=== PATIENT | female | born 1995 | race Two or more races ===

== ENCOUNTER 2024-09-27 00:04 | Observation (INO) | payer MEDICAID, OTHER ==
[~2024-09-27] VITALS: Ht 160 cm; Wt 77.1 kg
--- NOTE | 2024-09-28 01:06 | DVH ---
OB ULTRASOUND, LIMITED CLINICAL INDICATION: VAGINAL BLEEDING TECHNIQUE: Multiple grayscale ultrasound and M-mode images were obtained of the pelvis for evaluation of intrauterine . COMPARISON: None FINDINGS /impression: A single living fetus is seen in cephalic presentation. Placenta: Posterior. No placenta previa or abruption. Amniotic fluid: Visibly normal. Cervix is 3.1 cm and closed. heart rate: 164 beats/min. A complete anatomic survey was not performed on this exam.
--- NOTE | 2024-09-28 06:13 | DVHDS2 ---
Physician Discharge Progress N Final Diagnosis: IUP 20 wk, Vaginal bleeding (resolved) Operations or Procedures: Operations or Procedures OB ultrasound, no abruption or placenta previa Exam- cervix closed, no bleeding noted monitoring, no contractions Condition on Discharge: Stable Disposition: Home Discharge Instructions: Diet: Regular Activity: Light activity Activity comment: Pelvic rest x 2 wk Follow Up/Referral: F/U w/ Primary OB as scheduled, sooner PRN Medications: NA Follow Up Care: Discharge Statement: "Patient was advised to return to the ER or call 911 if any headaches, dizziness, shortness of breath, chest pain, abdominal pain, bleeding, fevers, or worsening of medical condition. Patient was counseled about treatment plan, medications, possible side effects, patientverbalized understanding. All questions were answered to the best of my ability. This discharge took greater then 30 minutes in planning, reviewing documentation, counseling the patient, and discussing with other team members." Visit Coding OBGYN Date of Service: Sep 28, 2024 Billing Provider: CESAR ROQUE DO [employer] Common Visit Codes: 61646-RXB/[id number] SAME DATE (HIGH) CESAR ROQUE DO Sep 28, 2024 06:13
== END 2024-09-28 01:18 | disposition home or self-care (01) ==
LOC: LDRP 23:44
PROVIDERS: ADMIT Obstetrics & Gynecology; ATTEND Obstetrics & Gynecology
DX: O26.852 Spotting complicating pregnancy, second trimester (principal); Z3A.20 20 weeks gestation of pregnancy; Z79.899 Other long term (current) drug therapy
CPT/HCPCS: 59025; 76815; 81002; 94760; G0378